=== PATIENT | male | born 1995 | race Caucasian/White ===

== ENCOUNTER → 2020-05-02 | Outpatient (CLI) | payer OTHER | LOC: M ADAMS 08:50 | PROVIDERS: ATTEND Physician Assistant | DX: S97.82XA Crushing injury of left foot, initial encounter (principal); X58.XXXA Exposure to other specified factors, initial encounter; Y92.89 Other specified places as the place of occurrence of the external cause ==

== ENCOUNTER → 2023-04-26 | Outpatient (CLI) | payer OTHER | LOC: M PLAIMG 15:57 | PROVIDERS: ATTEND Nurse Practitioner Family | DX: M79.672 Pain in left foot (principal) ==